=== PATIENT | female | born 1985 | race Caucasian/White ===

== ENCOUNTER 2018-02-03 19:30 | Emergency (ER) | payer OTHER ==
[~2018-02-03] VITALS: Ht 160 cm; Wt 83.9 kg
[~2018-02-03 19:30] MED LIST: ACYC800 PO; ALBU90OI61 INH; AMOX500 PO; CEPH500 PO; CIPR250 PO; CLIN150 PO; CODGUAEL PO; CYCL10 PO; DIPATR PO; ESTMED PO; Fluvoxamine Ma100 MG PO; GABA300 PO; HYDACE10B PO; HYDACE5 PO; HYDACE7.5 PO; IBUP400 PO; IBUP800 PO; Keflex500 MG PO; LORA1 PO; MEDR2.5 PO; NAPR375 PO; NAPR500 PO; NAPR550 PO; Norco 10-325 T1 EACH PO; ONDA4ODT MM; OXYACE5T PO; OXYACE7.5T PO; PRED10 PO; PRED20 PO; PROM25 PO; Percocet 5-3251 EACH PO; RXCLIN PO; RXHYDACE PO; RXNAPNA550 PO; RXOXYACE PO; SERT100; SERT25 PO; SERT50 PO; SULTRIDS PO; TRAM50 PO; Ultram50 MG PO; VARE1 PO; Veetids 500500 MG PO; Zofran Odt8 MG SL; Zovirax800 MG PO
[2018-02-03] MEDS ORDERED: METPRE4DP PO (20:54)
== END 2018-02-03 21:08 | disposition home or self-care (01) ==
LOC: ER 19:30
DX: M79.7 Fibromyalgia (principal); Z79.899 Other long term (current) drug therapy; Z79.891 Long term (current) use of opiate analgesic; F32.9 Major depressive disorder, single episode, unspecified; F17.200 Nicotine dependence, unspecified, uncomplicated
CPT/HCPCS: 72070; 72100; 96372; 99283-25; J3301

== ENCOUNTER 2020-02-18 10:30 | Emergency (ER) | payer OTHER ==
[~2020-02-18] VITALS: Ht 160 cm; Wt 70.3 kg
[~2020-02-18 10:30] MED LIST changes: +METPRE4DP PO
[2020-02-18] MEDS ORDERED: HYDACE10B PO (11:09)
[2020-02-18] MEDS ORDERED: PRED20 PO (11:41)
[2020-02-18] MEDS ORDERED: HYDR1TAB94 PO (11:41)
== END 2020-02-18 12:07 | disposition home or self-care (01) ==
LOC: ER 10:30
DX: G89.29 Other chronic pain (principal); M25.511 Pain in right shoulder; I10 Essential (primary) hypertension; Z79.899 Other long term (current) drug therapy; F17.200 Nicotine dependence, unspecified, uncomplicated
CPT/HCPCS: 96372; 99283-25; J1100